=== PATIENT | male | born 1970 | race Caucasian/White ===

== ENCOUNTER 2017-02-04 03:28 | Observation (INO) | payer SELFPAY ==
[~2017-02-04] VITALS: Ht 203.2 cm; Wt 115.0 kg
[~2017-02-04 03:28] MED LIST: METF500 PO; NAPR-576 PO
[2017-02-04 03:34] VITALS: BP 142/84; PULSE 73; RESP 18; TEMP 98.1; O2SAT 98
[2017-02-04] MEDS ORDERED: METF500T PO ×2 (03:39→10:31)
[2017-02-04 03:41] VITALS: BP_SYST 137; BP_SYST 142; BP_DIAS 72; BP_DIAS 84; PULSE 72; RESP 18; O2SAT 97; O2SAT 98
--- NOTE | 2017-02-04 03:44 | PD ---
HPI Chief Complaint: Chest Pain Time Seen by Provider: 03:32 Travel History International Travel<30 days: No Contact w/Intl Traveler<30days: No Traveled to known affect area: No History of Present Illness HPI C/O CP, SUBSTERNAL, NONRADIATING, ONSET 45MIN, 8/10, PRESSURE...DENIES HAVING A PCP, CONTINUES TO SMOKE 1PPD, STATES HE IS NOT COMPLIANT WITH HIS MEDICATIONS FOR (DM,HTN). PFSH Past Medical History Anxiety: Yes Heart Rhythm Problems: No Cardiac Catheterization: No Cardiovascular Problems: Yes ([place] - AFIB) High Cholesterol: Yes Congestive Heart Failure: No Coronary Artery Disease: Yes Diabetes: Yes Patient Takes Glucophage: No (METFORMIN - OFF OVER A MONTH) Diminished Hearing: Yes Hypertension: Yes Sleep Apnea: No Influenza Vaccination: No PNEUMOCCOCAL Vaccine (Year): 2007 Past Surgical History Abdominal Surgery: No Cardiac Surgery: No Coronary Artery Bypass Graft: No Endocrine Surgery: No Genitourinary Surgery: No Gynecologic Surgery: No Thoracic Surgery: No Other Surgery: Yes (FACIAL) Family History Family Myocardial Infarction: Yes Social History Alcohol Use: No Tobacco Use: Yes (1 PPD) Substance Use: Yes ("POT") Allergies-Medications (Allergen,Severity, Reaction): Coded Allergies: No Known Allergies (Verified , 02/04/17) Reported Meds & Prescriptions Reported Meds & Active Scripts Active Reported Metformin (Metformin HCl) 500 Mg Tab 500 Mg PO DAILY With a meal Review of Systems Except as stated in HPI: all other systems reviewed are Neg Cardiovascular: Positive: Chest Pain or Discomfort Physical Exam Narrative GENERAL: SKIN: Warm and dry. HEAD: Atraumatic. Normocephalic. EYES: Pupils equal and round. No scleral icterus. No injection or drainage. ENT: No nasal bleeding or discharge. Mucous membranes pink and moist. NECK: Trachea midline. No JVD. CARDIOVASCULAR: Regular rate and rhythm. RESPIRATORY: No accessory muscle use. Clear to auscultation. Breath sounds equal bilaterally. GASTROINTESTINAL: Abdomen soft, non-tender, nondistended. Hepatic and splenic margins not palpable. MUSCULOSKELETAL: Extremities without clubbing, cyanosis, or edema. No obvious deformities. NEUROLOGICAL: Awake and alert. No obvious cranial nerve deficits. Motor grossly within normal limits. Five out of 5 muscle strength in the arms and legs. Normal speech. PSYCHIATRIC: Appropriate mood and affect; insight and judgment normal. Data Data Last Documented VS Vital Signs Date Time Temp Pulse Resp B/P Pulse Ox O2 Delivery O2 Flow Rate FiO2 02/04/17 03:41 18 98 Room Air 02/04/17 03:41 72 142/84 137/72 02/04/17 03:34 98.1 Orders Electrocardiogram (02/04/17 03:34) B-Type Natriuretic Peptide (02/04/17 03:34) Ckmb (Isoenzyme) Profile (02/04/17 03:34) Complete Blood Count With Diff (02/04/17 03:34) Comprehensive Metabolic Panel (02/04/17 03:34) D-Dimer (02/04/17 03:34) Prothrombin Time / Inr (Pt) (02/04/17 03:34) Act Partial Throm Time (Ptt) (02/04/17 03:34) Troponin I (02/04/17 03:34) Lipase (02/04/17 03:34) Chest, Single Ap (02/04/17 03:34) Ecg Monitoring (02/04/17 03:34) Bilateral Bp Monitoring (02/04/17 03:34) Iv Access Insert/Monitor (02/04/17 03:34) Oximetry (02/04/17 03:34) Aspirin Chew (Aspirin Chew) (02/04/17 03:45) Morphine Inj (Morphine Inj) (02/04/17 03:45) Sodium Chloride 0.9% Flush (Ns Flush) (02/04/17 03:45) Ondansetron Inj (Zofran Inj) (02/04/17 03:45) CKMB (02/04/17 03:49) CKMB% (02/04/17 03:49) Iohexol 350 Inj (Omnipaque 350 Inj) (02/04/17 04:48) Admit Order (Ed Use Only) (02/04/17 05:13) Place In Observation (02/04/17 05:13) Activity Bed Rest With Brp (02/04/17 05:13) Vital Signs (Adult) Q4H (02/04/17 05:13) Cardiac Rhythm .As Directed (02/04/17 05:13) Notify Dr: Other .PRN (02/04/17 05:13) Notify Dr. Parameters (02/04/17 05:13) Resp Oxygen Nasal Cannula (02/04/17 ) Diet Heart Healthy (02/04/17 Breakfast) Ckmb (Isoenzyme) Profile (02/04/17 05:13) Ckmb (Isoenzyme) Profile (02/04/17 08:13) Troponin I (02/04/17 05:13) Troponin I (02/04/17 08:13) Electrocardiogram (02/04/17 05:13) Electrocardiogram (02/04/17 08:13) ^ Obtain (02/04/17 05:13) Sodium Chloride 0.9% Flush (Ns Flush) (02/04/17 05:15) Ondansetron Inj (Zofran Inj) (02/04/17 05:15) Optical Mechanic / Telemetry ALYSSA.Q8H (02/04/17 05:13) Enoxaparin Inj (Lovenox Inj) (02/04/17 05:15) Labs Laboratory Tests Test 02/04/17 03:49 White Blood Count 9.0 TH/MM3 Red Blood Count 4.81 MIL/MM3 Hemoglobin 15.0 GM/DL Hematocrit 43.4 % Mean Corpuscular Volume 90.1 FL Mean Corpuscular Hemoglobin 31.2 PG Mean Corpuscular Hemoglobin 34.7 % Concent Red Cell Distribution Width 14.3 % Platelet Count 193 TH/MM3 Mean Platelet Volume 9.3 FL Neutrophils (%) (Auto) 54.9 % Lymphocytes (%) (Auto) 35.5 % Monocytes (%) (Auto) 7.4 % Eosinophils (%) (Auto) 1.6 % Basophils (%) (Auto) 0.6 % Neutrophils # (Auto) 5.0 TH/MM3 Lymphocytes # (Auto) 3.2 TH/MM3 Monocytes # (Auto) 0.7 TH/MM3 Eosinophils # (Auto) 0.1 TH/MM3 Basophils # (Auto) 0.1 TH/MM3 CBC Comment DIFF FINAL Differential Comment Prothrombin Time 10.7 SEC Prothromb Time International 1.0 RATIO Ratio Activated Partial 25.4 SEC Thromboplast Time D-Dimer Quantitative (PE/DVT) 0.22 MG/L FEU Sodium Level 140 MEQ/L Potassium Level 3.7 MEQ/L Chloride Level 106 MEQ/L Carbon Dioxide Level 26.8 MEQ/L Anion Gap 7 MEQ/L Blood Urea Nitrogen 11 MG/DL Creatinine 1.00 MG/DL Estimat Glomerular Filtration 80 ML/MIN Rate Random Glucose 178 MG/DL Calcium Level 9.0 MG/DL Total Bilirubin 0.5 MG/DL Aspartate Amino Transf 13 U/L (AST/SGOT) Alanine Aminotransferase 25 U/L (ALT/SGPT) Alkaline Phosphatase 63 U/L Total Creatine Kinase 138 U/L Creatine Kinase MB 2.0 NG/ML Troponin I LESS THAN 0.02 NG/ML B-Type Natriuretic Peptide 5 PG/ML Total Protein 7.4 GM/DL Albumin 3.6 GM/DL Lipase 135 U/L MDM Medical Decision Making Medical Screen Exam Complete: Yes Emergency Medical Condition: Yes Medical Record Reviewed: Yes Interpretation(s) NSR, 73, NL INTERVALS, LVH WITH GANESH, P MITRALE, NO STEMI PATTERN Differential Diagnosis [place]/NONSTEMI V PE V ANEURYSM AORTA V PNA Narrative Course PATIENT HAS BEEN CP FREE SINCE ASA, MORPHINE GIVEN TO PATIENT, DUE TO RISK FACTORS (SMOKING, DM, HTN AND NONCOMPLIANT) WILL OBS FOR R/O D/W DR SHIPMAN WHO REC CHEST PAIN CENTER ADMISSION Diagnosis Primary Impression: CP R/O [place] Admitting Information Admitting Physician Requests: Observation Tim Segal MD Feb 04, 2017 03:44
[2017-02-04] MEDS ORDERED: SODIUM CHLORIDE 0.9% FLUSH 10 ML FLUSH IVF PRN (03:45)
[2017-02-04] MEDS ORDERED: ONDANSETRON HCL 4 MG/2 ML VIAL IV PUSH ONE (03:45)
[2017-02-04] MEDS ORDERED: ASPIRIN 81 MG CHEW TAB PO ONE (03:45)
[2017-02-04] MEDS ORDERED: MORPHINE SULFATE 4 MG/ML INJ IV PUSH ONE (03:45)
[2017-02-04 03:59] LABS: BASOPHIL # 0.1 TH/MM3 (0-0.2); BASOPHIL % 0.6 % (0.0-2.0); EOSINOPHIL # 0.1 TH/MM3 (0-0.4); EOSINOPHIL % 1.6 % (0.0-4.0); HEMATOCRIT 43.4 % (39.0-51.0); HEMO FLAGS DIFF FINAL; LYMPH % 35.5 % (9.0-44.0); LYMPHOCYTE # 3.2 TH/MM3 (1.0-4.8); MEAN CELL VOLUME 90.1 FL (80.0-100.0); MEAN CORPUSCULAR HEMOGLOBIN 31.2 PG (27.0-34.0); MEAN CORPUSCULAR HGB CONC 34.7 % (32.0-36.0); MONO % 7.4 % (0.0-8.0); NEUT % 54.9 % (16.0-70.0); PLATELET COUNT 193 TH/MM3 (150-450); RED BLOOD COUNT 4.81 MIL/MM3 (4.50-5.90); RED CELL DISTRIBUTION WIDTH 14.3 % (11.6-17.2)
[2017-02-04 04:12] LABS: APTT (PATIENT) 25.4 SEC (24.3-30.1); PROTHROMBIN TIME - PATIENT 10.7 SEC (9.8-11.6)
[2017-02-04 04:26] LABS: ALT (GPT) 25 U/L (12-78); ANION GAP 7 MEQ/L (5-15); AST (GOT) 13 U/L (15-37); BICARBONATE 26.8 MEQ/L (21.0-32.0); BLOOD UREA NITROGEN 11 MG/DL (7-18); CHLORIDE 106 MEQ/L (98-107); GLOMERULAR FILTRATION RATE 80 ML/MIN (>89); POTASSIUM 3.7 MEQ/L (3.5-5.1); SODIUM (NA) 140 MEQ/L (136-145)
[2017-02-04 04:29] LABS: ALKALINE PHOSPHATASE 63 U/L (45-117); CREATINE KINASE 138 U/L (39-308); TOTAL BILIRUBIN ADULT 0.5 MG/DL (0.2-1.0)
[2017-02-04] MEDS ORDERED: IOHEXOL 350 MG/ML 10 ML VIAL (for RAD DIAG) IV ONE (04:48)
--- NOTE | 2017-02-04 04:53 | RADRPT ---
EXAM DATE/TIME: 02/04/2017 03:55 [facility] COMPARISON: CHEST SINGLE AP, May 27, 2015, 14:41. INDICATIONS : Chest pain. MEDICAL HISTORY : Hypertension. Diabetes mellitus type II. SURGICAL HISTORY : None. ENCOUNTER: Initial ACUITY: 1 day PAIN SCORE: 8/10 LOCATION: chest substernal. FINDINGS: A single view of the chest demonstrates the lungs to be symmetrically aerated without evidence of mas s, infiltrate or effusion. The cardiomediastinal contours are unremarkable. Osseous structures are intact. CONCLUSION: The lungs are clear. Kyle Mercado MD on February 04, 2017 at 4:52 Board Certified Radiologist. This report was verified electronically.
[2017-02-04] MEDS ORDERED: SODIUM CHLORIDE 0.9% FLUSH 10 ML FLUSH IV FLUSH PRN (05:15)
[2017-02-04] MEDS ORDERED: ONDANSETRON HCL 4 MG/2 ML VIAL IV PRN (05:15)
[2017-02-04] MEDS ORDERED: ENOXAPARIN SODIUM 40 MG/0.4 ML SYRINGE SQ SCH (05:15)
[2017-02-04 05:23] VITALS: BP 121/59; PULSE 56; RESP 18; O2SAT 97
[2017-02-04 07:15] VITALS: BP 134/84; PULSE 61; RESP 16; TEMP 97.8; O2SAT 96
[2017-02-04 08:02] LABS: CREATINE KINASE 132 U/L (39-308)
[2017-02-04 08:15] LABS: CKMB 2.3 NG/ML (0.5-3.6)
[2017-02-04] MEDS ORDERED: ACETAMINOPHEN 325 MG TAB PO ONE (08:45)
--- NOTE | 2017-02-04 09:02 | HHI.HP ---
HPI Primary Care Physician No Primary Care Physician Chief Complaint Chest pain History of Present Illness This is a 47-year-old male with stated history of CAD stating that he had an NM about 7 years ago with a complaint of chest discomfort. He states he was treated for the NM at this facility however cannot find his records. He states that he has been under a lot of stress and went for walk last night. He states that around 2:00 in the morning while walking he developed a tightness in the center of his chest that radiated down his left arm. He was short of breath nauseous and diaphoretic with it. It lasted 2 hours. He states that [facility] offered nitroglycerin however he declined secondary to headache. He states he was given IV morphine in the ED which resolved his symptoms. They have not recurred. He states he is diabetic, has hypertension, and hyperlipidemia however he has not taken medicines for any these for quite some time sitting has no insurance. He also states that he has history of atrial fibrillation. Cannot recall last time he was in atrial fibrillation. States he doesn't take medication for atrial fibrillation. Patient continues to smoke 1 pack of service daily and smokes marijuana occasionally. Denies recent illness. Denies fevers or chills. His last stress test was about 7 years ago and upon review records he was seen in the chest pain center in 2010 and had reported that he had a stress test at a different facility just a few weeks prior. He had stated that the stress test was normal. Review of Systems General: Patient denies fevers, chills recent, and recent travel HEENT: Patient denies headache, sore throat, difficulty swallowing. Cardiovascular: Has the chest discomfort as mentioned above. Denies sensation of heart beating rapidly or irregularly. No syncope. He states he was diaphoretic. Respiratory: Reports shortness of breath. Denies inspirational chest discomfort. Denies coughing wheezing or hemoptysis. GI: States he was nauseous. Patient denies vomiting, diarrhea, abdominal pain, bloody stools. Musculoskeletal: Patient denies joint pain or edema. Denies calf pain or edema. Neurovascular: Patient denies numbness, tingling, weakness in extremities. Denies headache. Endocrine: Denies polyuria and polydipsia. Hematologic: Denies easy bruising. Skin: Denies rash or itching. Past Family Social History Allergies: Coded Allergies: No Known Allergies (Verified , 02/04/17) Past Medical History Reported history of an NM about 7 years ago. Diabetes, hypertension, hyperlipidemia, and stated history of atrial fibrillation and is noncompliant with treatment on these. Patient has also history of tobacco abuse. Continues to smoke 1 pack of cigarettes daily. Past Surgical History Noncontributory. Denies prior cardiac catheterization. Reported Medications Reported Meds & Active Scripts Active Reported Metformin (Metformin HCl) 500 Mg Tab 500 Mg PO DAILY With a meal Active Ordered Medications Current Medications Medications (Trade) Dose Ordered Sig/Saranya Route Start Time Stop Time Status Last Admin (NS Flush) 2 ml UNSCH PRN IVF 02/04/17 03:45 (NS Flush) 2 ml UNSCH PRN IV FLUSH 02/04/17 05:15 (Zofran Inj) 4 mg Q6H PRN IV 02/04/17 05:15 (Lovenox Inj) 40 mg Q24H SQ 02/04/17 05:15 02/04/17 05:24 (Tylenol) 650 mg NOW ONCE PO 02/04/17 08:45 02/04/17 08:46 Family History Denies family history of CAD. Social History Patient smokes one pack of cigarettes daily and has done so for 20 years. He smokes marijuana occasionally. States he's had no alcohol for 25 years. Physical Exam Vital Signs Vital Signs Date Time Temp Pulse Resp B/P Pulse Ox O2 Delivery O2 Flow Rate FiO2 02/04/17 07:15 97.8 61 16 134/84 96 02/04/17 05:23 56 18 121/59 97 Room Air 02/04/17 03:41 18 98 Room Air 02/04/17 03:41 72 18 142/84 97 Room Air 137/72 02/04/17 03:37 69 18 98 Room Air 02/04/17 03:34 98.1 73 18 142/84 98 Physical Exam GENERAL: This is a well-nourished, well-developed patient, in no apparent distress. Patient speaks in clear complete sentences. Patient is pleasant. HEENT: Head is atraumatic and normocephalic. Neck is supple without lymphadenopathy and trachea is midline. No JVD or carotid bruits. CARDIOVASCULAR: Regular rate and rhythm without murmurs, gallops, or rubs. RESPIRATORY: Clear to auscultation. Breath sounds equal bilaterally. No wheezes , rales, or rhonchi. Chest wall is nontender. No use of accessory muscles. GASTROINTESTINAL: Abdomen is nontender, nondistended. Abdomen soft. No obvious pulsatile mass or bruit. No CVA tenderness. Strong femoral pulses bilaterally. Normal bowel sounds in all quadrants. MUSCULOSKELETAL: Patient is moving upper and lower extremities freely. No calf tenderness or edema, no Homans sign. Strong pulses in upper and lower extremities. NEUROLOGICAL: Patient is alert and oriented. Cranial nerves 2-12 are grossly intact. No focal deficits and speech is clear. SKIN: No rash and turgor is normal. Laboratory Laboratory Tests Test 02/04/17 02/04/17 03:49 07:15 White Blood Count 9.0 Red Blood Count 4.81 Hemoglobin 15.0 Hematocrit 43.4 Mean Corpuscular Volume 90.1 Mean Corpuscular Hemoglobin 31.2 Mean Corpuscular Hemoglobin 34.7 Concent Red Cell Distribution Width 14.3 Platelet Count 193 Mean Platelet Volume 9.3 Neutrophils (%) (Auto) 54.9 Lymphocytes (%) (Auto) 35.5 Monocytes (%) (Auto) 7.4 Eosinophils (%) (Auto) 1.6 Basophils (%) (Auto) 0.6 Neutrophils # (Auto) 5.0 Lymphocytes # (Auto) 3.2 Monocytes # (Auto) 0.7 Eosinophils # (Auto) 0.1 Basophils # (Auto) 0.1 CBC Comment DIFF FINAL Differential Comment Prothrombin Time 10.7 Prothromb Time International 1.0 Ratio Activated Partial 25.4 Thromboplast Time D-Dimer Quantitative (PE/DVT) 0.22 Sodium Level 140 Potassium Level 3.7 Chloride Level 106 Carbon Dioxide Level 26.8 Anion Gap 7 Blood Urea Nitrogen 11 Creatinine 1.00 Estimat Glomerular Filtration 80 Rate Random Glucose 178 Calcium Level 9.0 Total Bilirubin 0.5 Aspartate Amino Transf 13 (AST/SGOT) Alanine Aminotransferase 25 (ALT/SGPT) Alkaline Phosphatase 63 Total Creatine Kinase 138 132 Creatine Kinase MB 2.0 2.3 Troponin I LESS THAN 0.02 LESS THAN 0.02 B-Type Natriuretic Peptide 5 Total Protein 7.4 Albumin 3.6 Lipase 135 Result Diagram: 02/04/17 0349 02/04/17 034 Imaging Last 48 hours Impressions Chest X-Ray 02/04/17333 Signed Impressions: Service Date/Time: Saturday, February 04, 2017 03:55 - CONCLUSION: The lungs are clear. Kyle Mercado MD Course EKGs have sinus rhythm without significant ST segment depressions or elevations. There is pattern of early repolarization which is on a prior EKG as well. Assessment and Plan Assessment and Plan * Chest pain: Patient is having serial cardiac enzymes and EKGs ruling out purposes. He will be seen by Dr. Adan Wood of cardiology and the chest pain center and will likely undergo a Adams protocol ETT. He likely discharged home if the stress test is nonischemic. * Diabetes: He needs to follow diabetic diet. He'll be on sliding scale insulin coverage while in the chest pain center. He is follow up with a primary care physician locally and restart medical management of his diabetes. * Hypertension: Likely start lisinopril. * Hyperlipidemia: Patient needs to restart medical management for peripheral edema. Will need follow local doctor. He will have follow-up LFTs as well. * Tobacco abuse: Patient has been counseled on the importance of smoking cessation. Patient is stable this time. He is agreeable to this plan. Dayday Batres Feb 04, 2017 09:02
[2017-02-04] MEDS ORDERED: LISINOPRIL 10 MG TAB PO SCH (10:04)
[2017-02-04 10:14] VITALS: PULSE 70
[2017-02-04] MEDS ORDERED: DEXTROSE 50% IN WATER 50 ML VIAL(D50) IV PRN (10:15)
[2017-02-04] MEDS ORDERED: GLUCAGON 1 MG/ML VIAL IM/SQ PRN (10:15)
[2017-02-04] MEDS ORDERED: LISI10TA3 PO (10:31)
[2017-02-04] MEDS ORDERED: ATOR10TA15 PO (10:31)
--- NOTE | 2017-02-04 10:36 | HHI.DCPOC ---
Discharge Care Plan Diagnosis: (1) Chest pain (2) Tobacco abuse (3) Hypertension (4) Hyperlipidemia (5) DM (diabetes mellitus) Goals to Promote Your Health NEED TO FOLLOW UP WITH PRIMARY CARE PHYSICIAN TO CHECK LIVER FUNCTION IN TWO WEEKS NOW THAT YOU ARE TAKING A CHOLESTEROL MEDICATION. * To prevent worsening of your condition and complications * To maintain your health at the optimal level Directions to Meet Your Goals Take your medications as prescribed Follow your dietary instruction Follow activity as directed Keep your appointments as scheduled Take your immunizations and boosters as scheduled If your symptoms worsen call your PCP, if no PCP go to Urgent Care Center or Emergency Room Smoking is Dangerous to Your Health. Avoid second hand smoke Call the 24-hour hour crisis hotline for domestic abuse at Dayday Batres Feb 04, 2017 10:35
[2017-02-04] MEDS ORDERED: INSULIN ASPART SUPPLEMENTAL SCALE SQ SCH (11:00)
--- NOTE | 2017-02-04 16:13 | EKG ---
Date Performed: 02/04/2017 Time Performed: 07:10:15 PTAGE: 47 years EKG: Sinus rhythm POSSIBLE LEFT VENTRICULAR HYPERTROPHY ABNORMAL ECG PREVIOUS TRACING : 02/04/2017 03.37 Since previous tracing, no significant change noted DOCTOR: Adan Wood Interpretating Date/Time 02/04/2017 16:13:49
--- NOTE | 2017-02-04 16:14 | EKG ---
Date Performed: 02/04/2017 Time Performed: 03:37:00 PTAGE: 47 years EKG: Sinus rhythm POSSIBLE LEFT VENTRICULAR HYPERTROPHY ABNORMAL ECG PREVIOUS TRACING : 11/01/2015 08.01 Since previous tracing, no significant change noted DOCTOR: Adan Wood Interpretating Date/Time 02/04/2017 16:14:11
--- NOTE | 2017-02-04 16:19 | TR ---
Date Performed: 02/04/2017 Time Performed: 09:18:10 DOCTOR: Adan Wood DRUG LIST: CLINICAL HISTORY: REASON FOR TEST: REASON FOR ENDING: OBSERVATION: CONCLUSION: ASAF PROTOCOL. DEVELOPED CP IN LAST STAGE IMPROVING IN REST. PT WAS SOB. TEST STOPP ED AFTER REACHING GOAL HR SECONDARY TO SOB AND LEG FATIGUE.Maximum OW=053 % Max HR Achieved=87.0% Max imum MJ=233/72 Total Exercise Time=10:01 COMMENTS: Patient exercised using the Asaf protocol. No electrocardiographic changes were seen to suggest ischemia. Hemodynamic response to exercise was normal. No significant arrhythmia was prese nt.
--- NOTE | 2017-02-06 09:43 | RADRPT ---
EXAM DATE/TIME: 02/04/2017 04:41 [facility] COMPARISON: No previous studies available for comparison. INDICATIONS : Chest pain and radiates down left arm. IV CONTRAST: 70 cc Omnipaque 350 (iohexol) IV RADIATION DOSE: 23.38 CTDIvol (mGy) MEDICAL HISTORY : Cardiovascular disease. Hypertension. Diabetes mellitus type 2. SURGICAL HISTORY : None. ENCOUNTER: Initial ACUITY: 1 day PAIN SCALE: 3/10 LOCATION: cranial TECHNIQUE: Volumetric scanning of the chest was performed using a pulmonary embolism protocol MIP images were re constructed. Using automated exposure control and adjustment of the mA and/or kV according to patien t size, radiation dose was kept as low as reasonably achievable to obtain optimal diagnostic quality images. DICOM format image data is available electronically for review and comparison. FINDINGS: PULMONARY ARTERIES: No filling defects are seen in the pulmonary arteries through the segmental level. LUNGS: There is no consolidation or pneumothorax . No concerning pulmonary nodule is visualized. PLEURAE: There is no pleural thickening or pleural effusion. MEDIASTINUM: There is good visualization of the great vessels of the middle mediastinum. No evidence of mediastin al or hilar adenopathy/mass. CONCLUSION: The study is negative for pulmonary embolism. Kyle Mercado MD on February 04, 2017 at 5:05 Board Certified Radiologist. This report was verified electronically.
== END 2017-02-04 11:58 | disposition home or self-care (01) ==
LOC: NEPC 03:28 → NEDA 05:18 → NEPHCDU 06:22
PROVIDERS: ADMIT Internal Medicine Interventional Cardiology; ATTEND Internal Medicine Interventional Cardiology
DX: R07.9 Chest pain, unspecified (principal); E11.9 Type 2 diabetes mellitus without complications; I10 Essential (primary) hypertension; M79.602 Pain in left arm; R94.31 Abnormal electrocardiogram [ECG] [EKG]; R61 Generalized hyperhidrosis; R11.0 Nausea; R06.02 Shortness of breath; I25.10 Atherosclerotic heart disease of native coronary artery without angina pectoris; I25.2 Old myocardial infarction; E78.5 Hyperlipidemia, unspecified; E78.00 Pure hypercholesterolemia, unspecified; I48.91 Unspecified atrial fibrillation; F41.9 Anxiety disorder, unspecified; H91.90 Unspecified hearing loss, unspecified ear; F17.210 Nicotine dependence, cigarettes, uncomplicated; F12.90 Cannabis use, unspecified, uncomplicated; Z91.19 Patient's noncompliance with other medical treatment and regimen; Z79.84 Long term (current) use of oral hypoglycemic drugs
CPT/HCPCS: 71010; 71275; 80053; 82550; 82552; 83690; 83880; 84484; 85025; 85379; 85610; 85730; 93005; 93017; 96374; 96375; 99285; G0378; J1650; J2270; J2405; Q9967

== ENCOUNTER 2017-02-04 22:34 | Emergency (ER) | payer SELFPAY ==
[~2017-02-04] VITALS: Ht 203.2 cm; Wt 115.0 kg
[~2017-02-04 22:34] MED LIST changes: +ATOR10TA15 PO; +IOHEXOL 350 MG/ML 10 ML VIAL (for RAD DIAG) IV ONE; +LISI10TA3 PO; +METF500T PO
[2017-02-04 22:41] VITALS: BP 103/59; PULSE 70; RESP 18; TEMP 98.3; O2SAT 98
[2017-02-04] MEDS ORDERED: METOCLOPRAMIDE HCL 10 MG/2 ML VIAL IV PUSH ONE (22:45)
[2017-02-04] MEDS ORDERED: ASPIRIN 81 MG CHEW TAB PO ONE (22:45)
[2017-02-04] MEDS ORDERED: SODIUM CHLORIDE 0.9% FLUSH 10 ML FLUSH IVF PRN (22:45)
[2017-02-04] MEDS ORDERED: KETOROLAC TROMETHAMINE 30 MG/ML (IVP) VIAL IV PUSH ONE (22:45)
--- NOTE | 2017-02-04 22:49 | PD ---
HPI Chief Complaint: Chest Pain Time Seen by Provider: 22:39 Travel History International Travel<30 days: No Contact w/Intl Traveler<30days: No Traveled to known affect area: No History of Present Illness HPI 47-year-old male with history of hypertension, diabetes, paroxysmal A. fib, one pack per day smoker, here for evaluation of chest pain. The patient was admitted less than 24 hours ago for chest pain to our chest pain center at the [facility]. There he had 2 sets of negative cardiac enzymes as well as a treadmill stress test with a read that showed patient exercise using the Adams protocol and there were no electrocardiographic changes to suggest ischemia with normal hemodynamic response to exercise and no significant arrhythmia. Patient was discharged this morning and states that his chest pain returned about 2 hours prior to arrival. He describes the pain as stabbing, 5 out of 10 , constant, left chest, radiates to his left arm, worse with movement and palpation. No dyspnea. Smokes marijuana occasionally, and denies using any other illicit drugs. Patient is also complaining of a diffuse headache that started about 2 hours ago as well is associated with photophobia. No nausea or vomiting. PFSH Past Medical History Anxiety: Yes Heart Rhythm Problems: Yes (afib) Cardiac Catheterization: No Cardiovascular Problems: Yes (enlarged heart chamber) High Cholesterol: Yes Congestive Heart Failure: No Coronary Artery Disease: Yes Diabetes: Yes Diminished Hearing: Yes Hypertension: Yes Sleep Apnea: No PNEUMOCCOCAL Vaccine (Year): 2007 Past Surgical History Abdominal Surgery: No Cardiac Surgery: No Coronary Artery Bypass Graft: No Endocrine Surgery: No Genitourinary Surgery: No Gynecologic Surgery: No Thoracic Surgery: No Other Surgery: Yes (FACIAL) Social History Alcohol Use: No Tobacco Use: Yes (1 PPD) Substance Use: Yes ("POT") Allergies-Medications (Allergen,Severity, Reaction): Coded Allergies: No Known Allergies (Verified , 02/04/17) Reported Meds & Prescriptions Reported Meds & Active Scripts Active Metformin (Metformin HCl) 500 Mg Tab 500 Mg PO BIDPC With meals Atorvastatin (Atorvastatin Calcium) 10 Mg Tab 10 Mg PO HS Lisinopril 10 Mg Tab 10 Mg PO DAILY Review of Systems Except as stated in HPI: all other systems reviewed are Neg Physical Exam Narrative GENERAL: Well-developed, well-nourished, no apparent distress SKIN: Focused skin assessment warm/dry. No rash. HEAD: Atraumatic. Normocephalic. EYES: Pupils equal and round. No scleral icterus. No injection or drainage. ENT: Mucous membranes pink and moist. NECK: Trachea midline. No JVD. CARDIOVASCULAR: Regular rate and rhythm. Distal pulses brisk and equal bilaterally. RESPIRATORY: No accessory muscle use. Clear to auscultation. Breath sounds equal bilaterally. GASTROINTESTINAL: Abdomen soft, non-tender, nondistended. MUSCULOSKELETAL: No obvious deformities. No clubbing. No cyanosis. No edema. NEUROLOGICAL: Awake and alert. No obvious cranial nerve deficits. Motor grossly within normal limits. Normal speech. PSYCHIATRIC: Appropriate mood and affect; insight and judgment normal. Data Data Last Documented VS Vital Signs Date Time Temp Pulse Resp B/P Pulse Ox O2 Delivery O2 Flow Rate FiO2 02/05/17 00:18 60 16 124/54 96 02/04/17 23:49 Room Air 02/04/17 22:41 98.3 Orders Basic Metabolic Panel (Bmp) (02/04/17 22:42) Ckmb (Isoenzyme) Profile (02/04/17 22:42) Complete Blood Count With Diff (02/04/17 22:42) Prothrombin Time / Inr (Pt) (02/04/17 22:42) Act Partial Throm Time (Ptt) (02/04/17 22:42) Troponin I (02/04/17 22:42) Chest, Single Ap (02/04/17 22:42) Ecg Monitoring (02/04/17 22:42) Iv Access Insert/Monitor (02/04/17 22:42) Oximetry (02/04/17 22:42) Aspirin Chew (Aspirin Chew) (02/04/17 22:45) Sodium Chloride 0.9% Flush (Ns Flush) (02/04/17 22:45) Ketorolac Inj (Toradol Inj) (02/04/17 22:45) Metoclopramide Inj (Reglan Inj) (02/04/17 22:45) CKMB (02/04/17 22:47) CKMB% (02/04/17 22:47) Labs Laboratory Tests Test 02/04/17 22:47 White Blood Count 10.4 TH/MM3 Red Blood Count 5.21 MIL/MM3 Hemoglobin 15.8 GM/DL Hematocrit 47.4 % Mean Corpuscular Volume 90.9 FL Mean Corpuscular Hemoglobin 30.3 PG Mean Corpuscular Hemoglobin 33.4 % Concent Red Cell Distribution Width 13.6 % Platelet Count 206 TH/MM3 Mean Platelet Volume 9.2 FL Neutrophils (%) (Auto) 58.2 % Lymphocytes (%) (Auto) 32.7 % Monocytes (%) (Auto) 7.1 % Eosinophils (%) (Auto) 1.2 % Basophils (%) (Auto) 0.8 % Neutrophils # (Auto) 6.1 TH/MM3 Lymphocytes # (Auto) 3.4 TH/MM3 Monocytes # (Auto) 0.7 TH/MM3 Eosinophils # (Auto) 0.1 TH/MM3 Basophils # (Auto) 0.1 TH/MM3 CBC Comment DIFF FINAL Differential Comment Prothrombin Time 10.8 SEC Prothromb Time International 1.0 RATIO Ratio Activated Partial 26.5 SEC Thromboplast Time Sodium Level 144 MEQ/L Potassium Level 4.1 MEQ/L Chloride Level 108 MEQ/L Carbon Dioxide Level 28.3 MEQ/L Anion Gap 8 MEQ/L Blood Urea Nitrogen 15 MG/DL Creatinine 1.30 MG/DL Estimat Glomerular Filtration 59 ML/MIN Rate Random Glucose 124 MG/DL Calcium Level 9.5 MG/DL Total Creatine Kinase 180 U/L Creatine Kinase MB 2.6 NG/ML Troponin I LESS THAN 0.02 NG/ML MDM Medical Decision Making Medical Screen Exam Complete: Yes Emergency Medical Condition: Yes Medical Record Reviewed: Yes Interpretation(s) EKG: Sinus, rate 64, normal axis, normal intervals, minimal voltage criteria for LVH, no acute ischemic abnormality. Differential Diagnosis ACS, pneumothorax, pericarditis, PE, pneumonia, musculoskeletal chest wall pain Narrative Course Initial vital signs show heart rate 70, blood pressure 103/59, pulse ox 98% on room air, oral temp of 98.3F. CBC is unremarkable. CMP is unremarkable. Cardiac enzymes are negative. Chest x-ray: No acute disease. Patient was given a full aspirin, IV Toradol, and IV Reglan. On reassessment he is sleeping comfortably. When awoken he states he is feeling a lot better. Both his chest pain and his headache have resolved. I do not believe his headache is from an SAH, encephalitis, or meningitis. I do not believe his chest pain is cardiac in nature. For one, he states the pain is sharp and is reproducible with palpation. He was also admitted to the chest pain center less than 24 hours ago and had a treadmill stress test during which Adams protocol was achieved and did not show any signs of ischemia on EKG during the stress test. There was also normal hemodynamic response to exercise. His d- dimer was negative earlier today at 0.22 with similar chest pains. His pain is not pleuritic. The patient was made aware of all findings. He is stable for discharge home with outpatient follow-up with a primary care physician this week. He reports that he does not have a primary care physician. I will give him the information to the [facility] to follow-up with this week. He was informed on when to return to the emergency department. He verbalizes understanding and agreement with plan. Diagnosis Primary Impression: Atypical chest pain Additional Impression: Headache Qualified Code: R51 - Acute nonintractable headache, unspecified headache type Referrals: [facility] 3 days Additional Instructions: Follow-up with a primary care physician this week. Return to the emergency department for worsening symptoms or any other concerns. Disposition: 01 DISCHARGE HOME Condition: Stable Raymond Richards MD Feb 04, 2017 22:49
[2017-02-04 22:59] LABS: AUTOMATED NEUTROPHIL # 6.1 TH/MM3 (1.8-7.7); BASOPHIL # 0.1 TH/MM3 (0-0.2); BASOPHIL % 0.8 % (0.0-2.0); EOSINOPHIL # 0.1 TH/MM3 (0-0.4); EOSINOPHIL % 1.2 % (0.0-4.0); HEMATOCRIT 47.4 % (39.0-51.0); HEMO FLAGS DIFF FINAL; LYMPH % 32.7 % (9.0-44.0); LYMPHOCYTE # 3.4 TH/MM3 (1.0-4.8); MEAN CELL VOLUME 90.9 FL (80.0-100.0); MEAN CORPUSCULAR HEMOGLOBIN 30.3 PG (27.0-34.0); MEAN CORPUSCULAR HGB CONC 33.4 % (32.0-36.0); MONO % 7.1 % (0.0-8.0); NEUT % 58.2 % (16.0-70.0); PLATELET COUNT 206 TH/MM3 (150-450); RED BLOOD COUNT 5.21 MIL/MM3 (4.50-5.90); RED CELL DISTRIBUTION WIDTH 13.6 % (11.6-17.2); WHITE BLOOD COUNT 10.4 TH/MM3 (4.0-11.0)
--- NOTE | 2017-02-04 23:00 | RADRPT ---
EXAM DATE/TIME: 02/04/2017 22:50 [facility] COMPARISON: CHEST SINGLE AP, February 04, 2017, 3:55. INDICATIONS : Chest pain. MEDICAL HISTORY : Cardiovascular disease. Hypertension. Diabetes mellitus type 2. SURGICAL HISTORY : None. ENCOUNTER: Initial ACUITY: 1 day PAIN SCORE: 10/10 LOCATION: Bilateral chest FINDINGS: A single view of the chest demonstrates the lungs to be symmetrically aerated without evidence of mas s, infiltrate or effusion. The cardiomediastinal contours are unremarkable. Osseous structures are intact. CONCLUSION: No acute disease. Kyle Mercado MD on February 04, 2017 at 22:58 Board Certified Radiologist. This report was verified electronically.
[2017-02-04 23:08] LABS: CHLORIDE 108 MEQ/L (98-107); POTASSIUM 4.1 MEQ/L (3.5-5.1); SODIUM (NA) 144 MEQ/L (136-145)
[2017-02-04 23:10] VITALS: BP 102/69; PULSE 75; RESP 17; O2SAT 96
[2017-02-04 23:11] LABS: ANION GAP 8 MEQ/L (5-15); BICARBONATE 28.3 MEQ/L (21.0-32.0); BLOOD UREA NITROGEN 15 MG/DL (7-18)
[2017-02-04 23:14] LABS: GLOMERULAR FILTRATION RATE 59 ML/MIN (>89)
[2017-02-04 23:15] LABS: APTT (PATIENT) 26.5 SEC (24.3-30.1); PROTHROMBIN TIME - PATIENT 10.8 SEC (9.8-11.6)
[2017-02-04 23:17] LABS: CREATINE KINASE 180 U/L (39-308)
[2017-02-04 23:29] LABS: CKMB 2.6 NG/ML (0.5-3.6)
[2017-02-04 23:49] VITALS: BP 107/48; PULSE 59; RESP 16; O2SAT 96
[2017-02-04 23:50] VITALS: RESP 16
[2017-02-05 00:18] VITALS: BP 124/54
--- NOTE | 2017-02-05 15:42 | EKG ---
Date Performed: 02/04/2017 Time Performed: 22:41:37 PTAGE: 47 years EKG: Sinus rhythm MINIMAL VOLTAGE CRITERIA FOR LVH, CONSIDER NORMAL VARIANT BORDERLINE ECG PREVIOUS TRACING : 02/04/2017 07.10 DOCTOR: Kedar Brito Interpretating Date/Time 02/05/2017 15:41:00
== END 2017-02-05 00:19 | disposition home or self-care (01) ==
LOC: PHED 22:34
DX: R07.89 Other chest pain (principal); R51 Headache; E11.9 Type 2 diabetes mellitus without complications; E78.00 Pure hypercholesterolemia, unspecified; I25.10 Atherosclerotic heart disease of native coronary artery without angina pectoris; I10 Essential (primary) hypertension; Z87.891 Personal history of nicotine dependence; I48.0 Paroxysmal atrial fibrillation
CPT/HCPCS: 71010; 80048; 82550; 82552; 84484; 85025; 85610; 85730; 93005; 96374; 96375; 99285; J1885; J2765; Q9967; 71275

== ENCOUNTER 2017-03-19 20:03 | Emergency (ER) | payer SELFPAY ==
[~2017-03-19] VITALS: Ht 203.2 cm; Wt 111.0 kg
[~2017-03-19 20:03] MED LIST changes: -IOHEXOL 350 MG/ML 10 ML VIAL (for RAD DIAG) IV ONE; -METF500 PO; -NAPR-576 PO
[2017-03-19 20:24] VITALS: BP 165/83; PULSE 84; RESP 18; TEMP 98.6; O2SAT 98
[2017-03-19] MEDS ORDERED: ONDANSETRON HCL 4 MG/2 ML VIAL IV PUSH ONE (20:45)
[2017-03-19] MEDS ORDERED: KETOROLAC TROMETHAMINE 30 MG/ML (IVP) VIAL IV PUSH ONE (20:45)
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
[2017-03-19 21:07] LABS: AUTOMATED NEUTROPHIL # 5.8 TH/MM3 (1.8-7.7); BASOPHIL # 0.1 TH/MM3 (0-0.2); BASOPHIL % 0.5 % (0.0-2.0); EOSINOPHIL # 0.2 TH/MM3 (0-0.4); EOSINOPHIL % 2.3 % (0.0-4.0); HEMATOCRIT 46.9 % (39.0-51.0); HEMO FLAGS DIFF FINAL; LYMPH % 35.5 % (9.0-44.0); LYMPHOCYTE # 3.8 TH/MM3 (1.0-4.8); MEAN CORPUSCULAR HEMOGLOBIN 31.3 PG (27.0-34.0); MEAN CORPUSCULAR HGB CONC 34.8 % (32.0-36.0); MONO % 8.5 % (0.0-8.0); NEUT % 53.2 % (16.0-70.0); PLATELET COUNT 212 TH/MM3 (150-450); RED BLOOD COUNT 5.21 MIL/MM3 (4.50-5.90); RED CELL DISTRIBUTION WIDTH 13.7 % (11.6-17.2); WHITE BLOOD COUNT 10.8 TH/MM3 (4.0-11.0)
[2017-03-19 21:16] LABS: CHLORIDE 102 MEQ/L (98-107); SODIUM (NA) 135 MEQ/L (136-145)
[2017-03-19 21:19] LABS: ANION GAP 9 MEQ/L (5-15); BICARBONATE 24.5 MEQ/L (21.0-32.0); BLOOD UREA NITROGEN 23 MG/DL (7-18)
[2017-03-19 21:22] LABS: GLOMERULAR FILTRATION RATE 65 ML/MIN (>89)
[2017-03-19 21:35] VITALS: BP 151/71; PULSE 74; RESP 18; O2SAT 97
--- NOTE | 2017-03-19 21:36 | RADRPT ---
EXAM DATE/TIME: 03/19/2017 20:44 [facility] COMPARISON: CHEST SINGLE AP, February 04, 2017, 22:50. INDICATIONS : Head and body aches. MEDICAL HISTORY : Myocardial infarction. Hypercholesterolemia. Hypertension. Coronary artery disease, enlarged hear t, coronary artery disease. SURGICAL HISTORY : ENCOUNTER: Initial ACUITY: 4 - 6 days PAIN SCORE: 6/10 LOCATION: Bilateral chest FINDINGS: A single view of the chest demonstrates the lungs to be symmetrically aerated without evidence of mas s, infiltrate or effusion. The cardiomediastinal contours are unremarkable. Osseous structures are intact. CONCLUSION: No acute disease. Mehrdad Childs MD FACR on March 19, 2017 at 21:34 Board Certified Radiologist. This report was verified electronically.
--- NOTE | 2017-03-19 21:37 | RADRPT ---
EXAM DATE/TIME: 03/19/2017 20:44 [facility] COMPARISON: No previous studies available for comparison. INDICATIONS : Head and body ache. MEDICAL HISTORY : Hypercholesterolemia. Hypertension Myocardial infarction. Diabetes, enlarged heart, coronary clair ry disease. SURGICAL HISTORY : None. ENCOUNTER: Initial ACUITY: 1 day PAIN SCORE: 6/10 LOCATION: Right Shoulder. FINDINGS: Mild degenerative changes AC joint without fracture. Alignment anatomic. Lung apex is clear. CONCLUSION: Mild degenerative changes. Mehrdad Childs MD FACR on March 19, 2017 at 21:35 Board Certified Radiologist. This report was verified electronically.
--- NOTE | 2017-03-19 21:37 | RADRPT ---
EXAM DATE/TIME: 03/19/2017 20:58 [facility] COMPARISON: No previous studies available for comparison. INDICATIONS : Head and body aches. MEDICAL HISTORY : Hypertension. Hypercholesterolemia. Myocardial infarction. Diabetes, enlarged heart, coronary art deepa disease, AFIB SURGICAL HISTORY : None. ENCOUNTER: Initial ACUITY: 1 day PAIN SCORE: 5/10 LOCATION: Right Elbow. FINDINGS: Two view examination of the right elbow demonstrates no soft tissue swelling, joint effusion, fractur e or dislocation. Bony mineralization is normal. CONCLUSION: Negative for fracture or dislocation. Follow up in 7-10 days is suggested if symptoms persist. Mehrdad Childs MD FACR on March 19, 2017 at 21:35 Board Certified Radiologist. This report was verified electronically.
[2017-03-19] MEDS ORDERED: IBUP-232 PO (22:11)
[2017-03-19] MEDS ORDERED: SODIUM CHLOR 0.9% 1000 ML INJ 1,000 ML IV ONE (22:15)
[2017-03-19 22:44] VITALS: BP 136/65; PULSE 68; RESP 18; O2SAT 99
--- NOTE | 2017-03-20 17:12 | EKG ---
Date Performed: 03/19/2017 Time Performed: 20:31:38 PTAGE: 47 years EKG: Sinus rhythm POSSIBLE LEFT ATRIAL ENLARGEMENT POSSIBLE LEFT VENTRICULAR HYPERTROPHY NONSPECIFIC T-WAVE ABNORMALIT Y Compared to previous tracing, QRS voltage is slightly greater, otherwise no significant change ABNO RMAL ECG PREVIOUS TRACING : 02/04/2017 22.41 DOCTOR: Jose Baker Interpretating Date/Time 03/20/2017 17:11:31
== END 2017-03-19 22:46 | disposition home or self-care (01) ==
LOC: PHED 20:03
DX: G43.909 Migraine, unspecified, not intractable, without status migrainosus (principal); M25.511 Pain in right shoulder; R05 Cough; E11.9 Type 2 diabetes mellitus without complications; I10 Essential (primary) hypertension; E78.00 Pure hypercholesterolemia, unspecified; I48.91 Unspecified atrial fibrillation; H91.90 Unspecified hearing loss, unspecified ear; F17.210 Nicotine dependence, cigarettes, uncomplicated; M79.1 Myalgia; R94.31 Abnormal electrocardiogram [ECG] [EKG]
CPT/HCPCS: 71010; 73030; 73070; 80048; 84484; 85025; 93005; 96361; 96374; 96375; 99285; J1885; J2405; J7030